=== PATIENT | female | born 1955 | race Caucasian/White ===

== ENCOUNTER 2016-12-24 01:25 | Emergency (ER) | payer OTHER ==
[~2016-12-24] VITALS: Ht 157.5 cm; Wt 75.9 kg
[~2016-12-24 01:25] MED LIST: LORTA5 PO
[2016-12-24 01:35] VITALS: BP 120/72; PULSE 110; RESP 18; TEMP 99.7; O2SAT 95
[2016-12-24 01:50] VITALS: BP 115/65; PULSE 100; RESP 18; O2SAT 96
[2016-12-24] MEDS ORDERED: methylPREDNISolone SOD SUCC 125 MG/2 ML VIAL IVP ONE (02:30)
[2016-12-24] MEDS ORDERED: SODIUM CHLORID 0.9% 500 ML INJ 500 ML IV ONE (02:30)
[2016-12-24] MEDS ORDERED: SODIUM CHLORIDE 0.9% FLUSH 5 ML FLUSH IVF PRN (02:30)
[2016-12-24] MEDS: RESP: ALBUTEROL 2.5 MG/IPRATROPIUM 0.5 MG NEB (SCH) INH (02:54)
[2016-12-24 03:04] LABS: BASOPHIL % 0.3 % (0.0-2.0); EOSINOPHIL % 0.1 % (0.0-4.0); HEMATOCRIT 39.4 % (35.0-46.0); HEMO FLAGS DIFF FINAL; LYMPH % 15.6 % (9.0-44.0); LYMPHOCYTE # 1.1 TH/MM3 (1.0-4.8); MEAN CELL VOLUME 85.2 FL (80.0-100.0); MEAN CORPUSCULAR HGB CONC 32.9 % (32.0-36.0); MONO % 9.9 % (0.0-8.0); NEUT % 74.1 % (16.0-70.0); PLATELET COUNT 312 TH/MM3 (150-450); RED BLOOD COUNT 4.62 MIL/MM3 (4.00-5.30); RED CELL DISTRIBUTION WIDTH 13.2 % (11.6-17.2); WHITE BLOOD COUNT 6.8 TH/MM3 (4.0-11.0)
[2016-12-24 03:13] LABS: BICARBONATE 27.3 MEQ/L (21.0-32.0)
--- NOTE | 2016-12-24 03:13 | RADHPO ---
EXAM DATE/TIME: 12/24/2016 02:49 [facility] COMPARISON: No previous studies available for comparison. INDICATIONS : Shortness of breath. MEDICAL HISTORY : None. SURGICAL HISTORY : None. ENCOUNTER: Initial ACUITY: 1 day PAIN SCORE: 6/10 LOCATION: Bilateral chest FINDINGS: Portable AP view of the chest demonstrates a normal-sized cardiac silhouette. No effusion, consolidat ion, or pneumothorax is visualized. The bones and soft tissues demonstrate no acute abnormality. Mult iple EKG lines overlie the patient. CONCLUSION: No acute cardiopulmonary abnormality is identified. Matthew Boo MD on December 24, 2016 at 3:11 Board Certified Radiologist. This report was verified electronically.
[2016-12-24 03:23] VITALS: BP 124/50; PULSE 121; RESP 18; O2SAT 96
[2016-12-24 04:10] VITALS: TEMP 98.3
[2016-12-24] MEDS ORDERED: MEDR4PAK PO (04:10)
[2016-12-24] MEDS ORDERED: ZITHTAB2 PO (04:10)
--- NOTE | 2016-12-24 04:16 | PD ---
HPI Chief Complaint: Respiratory Symptoms Time Seen by Provider: 02:28 Travel History International Travel<30 days: No Contact w/Intl Traveler<30days: No Traveled to known affect area: No History of Present Illness HPI 61 year-old female presents to the emergency department for sinus congestion and exacerbation of asthma since Monday. Patient is current on influenza vaccine. Patient's had no fever or chills. Patient has had yellow green sinus drainage. Patient has used home nebulizer without relief. Patient states this is a first-time and 6 years she's had to use her rescue inhaler or nebulizer. 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 Patient is using Sudafed and notes increased heart rate but no improvement of sinus congestion. No report of chest pain however overall discomfort 5/10 in intensity; has history of fibromyalgia. PFSH Past Medical History Narrative Medical Asthma, fibromyalgia cholecystectomy done tobacco use nursing notes reviewed Asthma: Yes (albuterol) Autoimmune Disease: Yes (fibromyalgia) Cancer: No Cardiovascular Problems: No Diminished Hearing: No Endocrine: No Genitourinary: No Headaches: Yes (in the past) Immune Disorder: Yes Musculoskeletal: No Psychiatric: No Reproductive: No Respiratory: Yes Tetanus Vaccination: > 5 Years Influenza Vaccination: Yes ?: Not Past Surgical History Abdominal Surgery: Yes (gallbladder removal 1991) Cholecystectomy: Yes Pacemaker: No Other Surgery: Yes Social History Alcohol Use: No Tobacco Use: No Substance Use: No Allergies-Medications (Allergen,Severity, Reaction): Coded Allergies: GASTROGRAFIN (Verified Allergy, Severe, 12/24/16) Penicillin (Verified Allergy, Severe, 12/24/16) Tetracyclines (Verified Allergy, Severe, 12/24/16) Reported Meds & Prescriptions Reported Meds & Active Scripts Active Medrol Dosepak (Methylprednisolone) 4 Mg Dspk 4 Mg PO DIRECTED Per Pharmacist direction Zithromax Tri-Dipak (Azithromycin) 500 Mg Dspk 500 Mg PO DAILY Review of Systems Except as stated in HPI: all other systems reviewed are Neg General / Constitutional: Positive: Fever, Chills HENT: Positive: Congestion Cardiovascular: No: Chest Pain or Discomfort Respiratory: Positive: Shortness of Breath, Wheezing Gastrointestinal: No: Abdominal Pain Genitourinary: No: Flank Pain Musculoskeletal: No: Myalgias, Arthralgias, Edema Skin: No Rash Neurologic: No: Syncope Psychiatric: No: Depression Endocrine: No: Polyuria Hematologic/Lymphatic: No: Lymph Node Enlargement Physical Exam Narrative GENERAL: Well-developed well-nourished female in no acute respiratory distress SKIN: Warm and dry. HEAD: Normocephalic. EYES: No scleral icterus. No injection or drainage. NECK: Supple, trachea midline. No JVD or lymphadenopathy. ENT: Sinuses tender to percussion; airway is patent CARDIOVASCULAR: Regular rate and rhythm without murmurs, gallops, or rubs. RESPIRATORY: Breath sounds equal bilaterally diminished without wheezes to auscultation. No accessory muscle use. GASTROINTESTINAL: Abdomen soft, non-tender, nondistended. MUSCULOSKELETAL: No cyanosis, or edema. BACK: Nontender without obvious deformity. No CVA tenderness. Data Data Last Documented VS Orders Complete Blood Count With Diff (12/24/16 02:28) Basic Metabolic Panel (Bmp) (12/24/16 02:28) Iv Access Insert/Monitor (12/24/16 02:28) Ecg Monitoring (12/24/16 02:28) Oximetry (12/24/16 02:28) Oxygen Administration (12/24/16 02:28) Chest, Single Ap (12/24/16 02:28) Sodium Chloride 0.9% Flush (Ns Flush) (12/24/16 02:30) Methylprednisolone So Succ Inj (Solumedr (12/24/16 02:30) Albuterol-Ipratropium Neb (Duoneb Neb) (12/24/16 02:30) Group A Rapid Strep Screen (12/24/16 02:28) Influenzae A/B Antigen (12/24/16 02:28) Lactic Acid (12/24/16 02:28) Blood Culture (12/24/16 02:28) Sodium Chlorid 0.9% 500 Ml Inj (Ns 500 M (12/24/16 02:30) Strep Culture (Group A) (12/24/16 03:10) Labs Laboratory Tests Test 12/24/16 02:50 White Blood Count 6.8 TH/MM3 Red Blood Count 4.62 MIL/MM3 Hemoglobin 12.9 GM/DL Hematocrit 39.4 % Mean Corpuscular Volume 85.2 FL Mean Corpuscular Hemoglobin 28.0 PG Mean Corpuscular Hemoglobin 32.9 % Concent Red Cell Distribution Width 13.2 % Platelet Count 312 TH/MM3 Mean Platelet Volume 8.9 FL Neutrophils (%) (Auto) 74.1 % Lymphocytes (%) (Auto) 15.6 % Monocytes (%) (Auto) 9.9 % Eosinophils (%) (Auto) 0.1 % Basophils (%) (Auto) 0.3 % Neutrophils # (Auto) 5.0 TH/MM3 Lymphocytes # (Auto) 1.1 TH/MM3 Monocytes # (Auto) 0.7 TH/MM3 Eosinophils # (Auto) 0.0 TH/MM3 Basophils # (Auto) 0.0 TH/MM3 CBC Comment DIFF FINAL Differential Comment Sodium Level 142 MEQ/L Potassium Level 4.0 MEQ/L Chloride Level 107 MEQ/L Carbon Dioxide Level 27.3 MEQ/L Anion Gap 8 MEQ/L Blood Urea Nitrogen 14 MG/DL Creatinine 0.92 MG/DL Estimat Glomerular Filtration 62 ML/MIN Rate Random Glucose 112 MG/DL Lactic Acid Level 1.1 mmol/L Calcium Level 8.4 MG/DL MDM Medical Decision Making Medical Screen Exam Complete: Yes Emergency Medical Condition: Yes Medical Record Reviewed: Yes Interpretation(s) CBC & BMP Diagram 12/24/16 02:50 Last Impressions Chest X-Ray 12/24/168 Signed Impressions: Service Date/Time: Saturday, December 24, 2016 02:49 - CONCLUSION: No acute cardiopulmonary abnormality is identified. Matthew Boo MD Influenza A/B antigen, negative rapid strep antigen: Negative Lactic acid: 1.1 not elevated Differential Diagnosis Exacerbation asthma, influenza, sinusitis, pneumonia Narrative Course Specimens collected and sent for resulting; in view of heart rate and mild temperature elevation lactic acid and blood cultures obtained. Specimens collected for influenza. Patient administered Solu-Medrol 120 mg times one dose IV as well as another updraft 2 Chest x-ray no lobar infiltrate Lab values grossly within normal range lactic acid in normal range At 4 AM patient clinically improved and stable for outpatient management Sepsis Criteria SIRS Criteria (2 or more): Heart rate over 90 Diagnosis Primary Impression: Exacerbation of asthma Additional Impression: Sinusitis Referrals: Primary Care Physician 2 days Patient Instructions: General Instructions Departure Forms: Tests/Procedures, Work Release Special Instructions: no work x 2 days Med/Other Pt SpecificInfo: Prescription(s) given Scripts Methylprednisolone Dosepak (Medrol Dosepak)4 Mg Dspk4 Mg PO DIRECTED #1 DSPK Ref 0 Per Pharmacist direction Prov:Nirmala Shahid MD 12/24/16 Azithromycin (Zithromax Tri-Dipak)500 Mg Gmem007 Mg PO DAILY #1 DSPK Ref 0 Prov:Nirmala Shahid MD 12/24/16 Disposition: 01 DISCHARGE HOME Condition: Stable Nirmala Shahid MD Dec 24, 2016 04:16
== END 2016-12-24 04:38 | disposition home or self-care (01) ==
LOC: PHED 01:25
DX: J45.901 Unspecified asthma with (acute) exacerbation (principal); J32.9 Chronic sinusitis, unspecified; M79.7 Fibromyalgia
CPT/HCPCS: 71010; 80048; 83605; 85025; 87040; 87081; 87804; 87880; 94640; 94664; 96361; 96374; 99283; J2930; J7040

== ENCOUNTER 2017-02-27 16:26 | Emergency (ER) | payer OTHER ==
[~2017-02-27] VITALS: Ht 157.5 cm; Wt 74.5 kg
[~2017-02-27 16:26] MED LIST changes: -LORTA5 PO; +MEDR4PAK PO; +ZITHTAB2 PO
[2017-02-27 16:28] VITALS: BP 143/79; PULSE 114; RESP 15; TEMP 98.3; O2SAT 97
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
[2017-02-27] MEDS ORDERED: IBUPROFEN 800 MG TAB PO ONE (17:30)
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
[2017-02-27 17:47] VITALS: PULSE 85; RESP 18
[2017-02-27] MEDS ORDERED: IBUP800T23 PO (17:53)
== END 2017-02-27 17:45 | disposition home or self-care (01) ==
LOC: NEPK 16:26
DX: S00.83XA Contusion of other part of head, initial encounter (principal); W50.0XXA Accidental hit or strike by another person, initial encounter; Y93.F9 Activity, other caregiving; Y92.239 Unspecified place in hospital as the place of occurrence of the external cause; Y99.0 Civilian activity done for income or pay
CPT/HCPCS: 70486